=== PATIENT | female | born 1955 | race Caucasian/White ===

== ENCOUNTER 2016-11-07 09:00 | Inpatient (IN) | payer BC ==
[2016-11-07] MEDS ORDERED: Adacel (T-DAP) 0.5 ML VIAL ONE (09:20)
[2016-11-07] MEDS ORDERED: Piperacillin/Tazobactam 3.375 GM VIAL ONE (09:40)
[2016-11-07] MEDS ORDERED: Sodium Chloride 0.9% 0 ML ONE ×2 (09:44→09:45)
[2016-11-07] MEDS ORDERED: Sodium Chloride 0.9% 100 ML ONE (09:45)
[2016-11-07 09:51] LABS: #Basophils 0.2 thou/uL (0.0-0.2); #Eosinphils 0.1 thou/uL (0.0-0.7); #Lymphocytes 2.1 thou/uL (1.20-3.40); #Neutrophils 12.1 thou/uL (1.40-6.50); %Basophils 1.1 % (0.0-1.0); %Eosinophils 0.7 % (0.0-10.0); %Lymphocytes 13.7 % (21.0-51.0); %Monocytes 6.7 % (0.0-10.0); Hematocrit 43.8 % (36.0-47.0); Mean Platelet Volume 6.8 fL (7.4-10.4); Red Blood Cell (RBC) Count 4.77 mill/uL (4.20-5.40); White Blood Cell (WBC) Count 15.6 thou/uL (4.8-10.8)
[2016-11-07 10:00] LABS: Lactic Acid - Sepsis 1.2 mmol/L (0.5-2.2)
[2016-11-07 10:04] LABS: ALT (SGPT) 16 U/L (0-55); AST (SGOT) 19 U/L (5-34); Alkaline Phosphatase 72 U/L (40-150); Anion Gap 17 mmol/L (10-20); BUN (Urea Nitrogen) 12 mg/dL (9.8-20.1); Bilirubin, Total 0.6 mg/dL (0.2-1.2); Calc. Creatinine Clearance 0 mL/min (70-130); Calcium 10.4 mg/dL (7.8-10.44); Carbon Dioxide 24 mmol/L (23-31); Chloride 102 mmol/L (98-107); Estimated GFR-MDRD Greater than 90; Globulin 2.8 g/dL (2.4-3.5); Protein, Total 7.6 g/dL (5.8-8.1)
[2016-11-07] MEDS ORDERED: Ketorolac Tromethamine 30 MG/ML VIAL ONE (10:04)
--- NOTE | 2016-11-07 10:54 | RAD ---
RIGHT HAND: Three views obtained. HISTORY: Injury from dog bite. Swelling and redness to right 2nd finger. FINDINGS: The carpals, metacarpals, and phalanges appear intact. There is soft tissue swelling involving the index finger. No osseous abnormality identified. IMPRESSION: No acute osseous abnormality. POS: YOLA
[2016-11-07] MEDS ORDERED: Acetaminophen 325 MG TAB PO PRN ×2 (15:22→22:30)
[2016-11-07] MEDS ORDERED: HYDROcodone/Acetaminophen 5/325 mg Tablet PO PRN ×2 (15:22)
[2016-11-07] MEDS ORDERED: Ondansetron HCl/PF 4 MG/2 ML Vial IVP PRN (15:22)
[2016-11-07] MEDS ORDERED: Ondansetron ODT 4 MG TAB SL PRN (15:22)
[2016-11-07] MEDS ORDERED: Ibuprofen 400 MG TAB PO PRN (15:25)
[2016-11-07] MEDS ORDERED: Sodium Chloride 0.9% 10 ML ONE (16:26)
[2016-11-07] MEDS: Piperacillin/Tazobactam 3.375 GM in Sodium Chloride 0.9% 100 ML IVPB SCH ×2 (16:37→22:21)
[2016-11-07] MEDS ORDERED: Acetaminophen 500 MG TAB PO PRN (23:02)
[2016-11-07] MEDS ORDERED: diphenhydrAMINE HCl 25 MG CAP PO PRN (23:04)
--- NOTE | 2016-11-08 02:40 | PRG ---
HISTORY AND PHYSICAL DATE OF ADMISSION: 11/07/2016 DATE OF SERVICE: 11/07/2016 HISTORY OF PRESENT ILLNESS: Ms. Perez is a 61-year-old white female that got admitted for cellulitis. This started when her dogs started fighting and when she tried to break them up, she was bitten on her right hand. This happened on Thursday or Thursday. Since then, her hand has gradually been getting more red and more infected. Today, she has a significant red swollen index and second finger with a swollen wrist and redness, a red line that goes all the way up to about 2 inches below the axilla. She was seen in the ER by Dr. Jose Alfredo Blunt and felt to be needed to have admission. She did talk with Dr. Aguilera up at [facility] and did talk with a specialist up at [facility] in [place] to make sure this was some type of tenosynovitis that they need to be seen over at a big hospital. Nonetheless, the patient was admitted to the hospital for IV antibiotics and started on Zosyn 3.375 IV q.6 hours. SUBJECTIVE: The patient states she already feels a little bit better. She is very anxious about staying in the hospital. She does not want to stay here. Apparently, her family member was chronically ill and has spent many days in the hospital. She just becomes so nervous that she cannot sleep in the hospital , etc. PAST MEDICAL HISTORY: Significant for; 1. Multiple sclerosis followed by Dr. Rosado. 2. Hypertension. 3. Hyperlipidemia. 4. Osteopenia. 5. Hypertensive heart disease without heart failure. SURGICAL HISTORY: Reveals patient denies any surgical history. FAMILY HISTORY: Reveals patient's father at age of 58 of lung cancer. He also has hypertension. The patient's mother also had lung cancer. PRESENT MEDICATIONS: Revealed the patient presently takes the following; 1. Caduet 06/19, which is amlodipine with atorvastatin one a day. 2. TriCor 145 mg once a day. 3. Fosamax 70 mg once a week. 4. Calcium 600 mg chewable with vitamin D 2000 mg daily. ALLERGIES: The patient has no known drug allergies. REVIEW OF SYSTEMS: Revealed the patient denies any fever, chills, or pain. She states she feels a little bit tired, went down. She has been fighting this for the last several days. Denies any respiratory problems, including cough, cold, congestion. The patient denies any chest pain, racing or skipping slow heartbeats. Denies any dyspnea on exertion. Denies any nausea, vomiting, diarrhea, constipation, black tarry stools. Denies any genitourinary problems including dysuria, hematuria or nocturia. Denies any significant pain besides just somewhat swelling that her fingers do not bend. PHYSICAL EXAMINATION: GENERAL: This is a well-developed, well-nourished, very pleasant, and very very nervous white female, in no apparent distress at this time. HEENT: Reveals normocephalic, nontraumatic cranium. Pupils are equally round and reactive. Extraocular movements are intact. Nose and throat are slightly dry. NECK: Supple without masses, nodes or bruits. CHEST: Clear to auscultation. No rales, rhonchi or wheezes are heard. HEART: Reveals a regular rate and rhythm without murmurs, gallops or rubs. Tachycardia is noted right at 105. At this time, it is noted that she has been up to 107. ABDOMEN: Soft and nontender without organomegaly. Normal bowel sounds are noted. No rebound or guarding is noted. : Deferred. EXTREMITIES: Reveal no clubbing, cyanosis or edema. The patient has significant swelling of the index, second and long finger with significant swelling above the first and second knuckle and into the wrist and then red lines that run on the palmar surface up past the antecubital space within 2 inches of the axilla. These are red and ropy and she denies pain, but when I rub over them slightly, she winces a little bit. IMPRESSION: 1. Cellulitis from a dog bite. 2. Hypertensive heart disease without heart failure. 3. Hyperlipidemia. 4. Osteopenia. 5. Multiple sclerosis. 6. Anxiety depressive disorder with extreme anxiety. 7. Tobacco abuse. The patient states she has cut down to 1 or 2 cigarettes occasionally. 8. History of 2 to 3 beers almost every night although about one month ago, she went about a week without it. She adamantly denies wanting any type of benzos to make sure she does not have any withdrawal. ASSESSMENT: 1. Cellulitis of the right upper extremity significant from going from the second and third index and long finger all the way up to the axilla. 2. Blood cultures are done and pending. PLAN: 1. The patient is on Zosyn 3.375 mg IV q.6 hours. 2. Ondansetron for nausea and vomiting. 3. Ibuprofen p.r.n. 4. Continue fenofibrate. 5. Hooper 5 p.r.n. severe pain. 6. Tylenol. 7. The patient was asking for Tylenol PM p.r.n. insomnia. 8. Estimated length of stay is probably 3 days with possibly going home on oral antibiotics long-term. MTDD
[2016-11-08] MEDS: Piperacillin/Tazobactam 3.375 GM in Sodium Chloride 0.9% 100 ML IVPB SCH ×3 (03:59→16:09)
[2016-11-08 06:06] LABS: Anion Gap 14 mmol/L (10-20); BUN (Urea Nitrogen) 11 mg/dL (9.8-20.1); Calc. Creatinine Clearance 77 mL/min (70-130); Calcium 9.5 mg/dL (7.8-10.44); Carbon Dioxide 25 mmol/L (23-31); Chloride 106 mmol/L (98-107); Estimated GFR-MDRD Greater than 90
[2016-11-08 06:16] LABS: #Basophils 0.1 thou/uL (0.0-0.2); #Eosinphils 0.2 thou/uL (0.0-0.7); #Lymphocytes 2.4 thou/uL (1.20-3.40); #Monocytes 0.9 thou/uL (0.11-0.59); #Neutrophils 7.3 thou/uL (1.40-6.50); %Basophils 0.8 % (0.0-1.0); %Eosinophils 1.6 % (0.0-10.0); %Lymphocytes 22.2 % (21.0-51.0); %Monocytes 8.3 % (0.0-10.0); Hematocrit 36.3 % (36.0-47.0); Mean Platelet Volume 7.2 fL (7.4-10.4); Red Blood Cell (RBC) Count 3.98 mill/uL (4.20-5.40); White Blood Cell (WBC) Count 10.9 thou/uL (4.8-10.8)
[2016-11-08 07:14] VITALS: BP 133/67
[2016-11-08] MEDS ORDERED: Non-Formulary Item 1 EACH (Amlodipine/Atorvastatin [Caduet] 1 TABLET) PO SCH (09:00)
[2016-11-08] MEDS ORDERED: Fenofibrate Nanocrystallized 145 MG TAB PO SCH (09:00)
[2016-11-08] MEDS ORDERED: Atorvastatin Calcium 20 MG TAB PO SCH (09:00)
[2016-11-08 13:45] VITALS: TEMP 96.6
--- NOTE | 2016-11-09 03:55 | DIS ---
DATE OF ADMISSION: 11/07/2016 DATE OF DISCHARGE: 11/08/2016 Ms. Perez is a 61-year-old patient of Dr. Holcomb service that was seen in the emergency room after having a dog bite. When she tried to break up her son's dog's fighting approximately about a week ago. She was seen in the emergency room with the right index and right long finger completely swoll en, unable to move along with swelling with the knuckles and then red streaks that went from her wri st all the way up to her ankle approximately stopping 1 inch from the axilla. She was seen in the E R, given a dose of Zosyn and then has continued Zosyn 3.375 q.6 hours until this evening. Her white count went down from 15,000-10,000. She is feeling much better. Her redness is all gone and she is stating that she is going to go home or sign out against medical advice. The patient did have 2 blood cultures growing one of which is negative for any growth at all and the other which is growing MRSE, methicillin-resistant staphylococcus epidermidis. The patient respond ed very well and is basically 95% back clinically. She has no fever. She has no chills; white coun t has gone from 15,000 to 10,000. I did discuss the case with Dr. Avila and he felt that most likely the patient has these strep infec tion or strep cryptococcus or contaminant. He felt that placed her on amoxicillin 500 mg for anothe r 10 days should more than adequately eradicate the problem. He felt that the patient had further p roblems she said definitely would need to come back. Vital signs reveal blood pressure this morning 133/67, pulse 95-107, respirations 20, O2 sat 95%. T -max is 99 last night and temperature this morning just today is 96.6. LABORATORY DATA: Reveals white count gone down 15,600 to 10,900. Her hemoglobin is 12.2, hematocri t 36.3 and platelet count 320,000. She has no significant shift at this time. Her sodium was 141, potassium 3.9, chloride 106, carbon dioxide 26 with a BUN of 11, creatinine 0.62 . GFR greater than 90. Sugars was 97. PHYSICAL EXAMINATION: GENERAL: This is a well-developed, well-nourished, very anxious and fidgety and somewhat agitated w guerda female in no apparent distress at this time. HEENT: Reveals normocephalic, nontraumatic cranium. Pupils are equal, round, and reactive. Extrao cular movements intact. Nose and throat slightly dry. NECK: Supple, without masses, nodes, or bruits. CHEST: Clear to auscultation, no rales, rhonchi or wheezes are heard. HEART: Reveals regular rate and rhythm without murmurs, gallops or rubs. Patient not tachycardic a nymore. ABDOMEN: Soft, nontender, without organomegaly, normal bowel sounds are noted. No rebound or guard ing is noted. GENITOURINARY: Deferred. EXTREMITIES: No axillary lymph nodes. The patient says red lines they go all the way up to the axi lla are absolutely gone. The patient has no red streaks at her wrist at all or in her forearm. She has slight swelling of the right index finger and no significant swelling of the long finger at thi s time. She states she feels much better. She states she is healed. She is going to go out AMA, i f we do not discharge her. I spoke before I did talk with Dr. Avila. She felt that starting on amoxicillin 500 mg 3 times a da y for 10 days for complete eradicate problem. DISCHARGE MEDICATIONS: Will be the same medications that she came in on, which include Caduet 10/20 once a day, Tricor 145 once daily, Fosamax 70 once a week, calcium 600 with vitamin D 2000 daily, a nd new addition will be amoxicillin 500 mg 3 times a day for 30 doses. IMPRESSION: 1. Cellulitis from a dog bite. 2. Hypertensive heart disease without heart failure. 3. Hyperlipidemia. 4. Osteopenia. 5. History of multiple sclerosis followed by Dr. Nathaniel Rosado. 6. Anxiety depressive disorder with extreme anxiety. 7. Tobacco abuse, which the patient is pretty much stopping her cigarettes. 8. History of 2-3 beers almost every night, although she states she is not dependent. PLAN: 1. The patient will be discharged at this time. 2. Prescription for amoxicillin 500 mg #30, 1-3 times a day will be given. 3. The patient will continue previous medications. 4. The patient will be follow up with Dr. Dinh over the next 7-10 days.
== END 2016-11-08 18:00 | disposition home or self-care (01) | DRG 605 ==
LOC: NAV ERS 09:00 → NAV ACUTE 12:13
PROVIDERS: ADMIT Internal Medicine; ATTEND Internal Medicine
DX: S61.250A Open bite of right index finger without damage to nail, initial encounter (principal); G35 Multiple sclerosis; I11.9 Hypertensive heart disease without heart failure; S61.252A Open bite of right middle finger without damage to nail, initial encounter; L03.011 Cellulitis of right finger; W54.0XXA Bitten by dog, initial encounter; E78.5 Hyperlipidemia, unspecified; M85.80 Other specified disorders of bone density and structure, unspecified site; F41.9 Anxiety disorder, unspecified; F17.210 Nicotine dependence, cigarettes, uncomplicated
CPT/HCPCS: 80048; 80053; 83605; 85025; 87040; 87149; 90471; 90715; 96365; 96375; A4216; J1885; J2543; J7050

== ENCOUNTER 2016-11-11 08:12 | Outpatient (CLI) | payer BC | END 2016-11-11 08:13 | LOC: NAVSJIPCSP 08:12 | PROVIDERS: ATTEND Internal Medicine | DX: E78.5 Hyperlipidemia, unspecified (principal) | CPT/HCPCS: 36415; 80061 ==

== ENCOUNTER 2017-02-23 08:54 | Outpatient (CLI) | payer BC ==
[2017-02-23 12:56] LABS: Cardiac Risk 2.4 (Less than 4.5)
== END 2017-02-23 08:55 | disposition home or self-care (01) ==
LOC: NAVSJIPCSP 08:54
PROVIDERS: ATTEND Internal Medicine
DX: E78.5 Hyperlipidemia, unspecified (principal)
CPT/HCPCS: 36415; 80061

== ENCOUNTER 2017-03-09 10:18 | Outpatient (CLI) | payer BC ==
--- NOTE | 2017-03-09 16:47 | ULT ---
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 TECHNIQUE: Antonio scale ultrasound with color flow and spectral Doppler imaging of the extracranial carotid arter y systems was performed bilaterally. FINDINGS: There is plaque formation on either side. The ICAs are bilaterally tortuous. The peak systolic velocity in the right ICA measures 73 cm/second with an end-diastolic velocity of 23 cm/second and a systolic ratio of 1.04. The peak systolic velocity in the left ICA measures 63 cm/second with an end-diastolic velocity of 2 0 cm/second and a systolic ratio of 0.73 Flow in both vertebral arteries remains antegrade. IMPRESSION: No evidence of hemodynamically significant stenosis. POS: YOLA
[2017-03-11 15:24] LABS: Ref Lab Test Ordered LIPID CASCADE; Reference Lab Name LABCORP
== END 2017-03-09 10:19 | disposition home or self-care (01) ==
LOC: NAV ULT 10:18
PROVIDERS: ATTEND Internal Medicine
DX: H34.12 Central retinal artery occlusion, left eye (principal); I65.23 Occlusion and stenosis of bilateral carotid arteries
CPT/HCPCS: 36415; 93306; 93880

== ENCOUNTER 2017-05-29 08:13 | Outpatient (CLI) | payer BC ==
[2017-05-29 12:14] LABS: #Basophils 0.1 thou/uL (0.0-0.2); #Eosinphils 0.2 thou/uL (0.0-0.7); #Lymphocytes 2.5 thou/uL (1.20-3.40); #Monocytes 0.5 thou/uL (0.11-0.59); #Neutrophils 3.1 thou/uL (1.40-6.50); %Basophils 1.3 % (0.0-1.0); %Eosinophils 2.8 % (0.0-10.0); %Lymphocytes 38.8 % (21.0-51.0); %Monocytes 8.4 % (0.0-10.0); %Neutrophils 48.7 % (42.0-75.0); Hemoglobin 13.1 g/dL (12.0-16.0); Mean Corpuscular HGB CONC 32.4 g/dL (32.0-36.0); Mean Corpuscular Hemoglobin 30.4 pg (27.0-31.0); Mean Corpuscular Volume 93.9 fl (81.0-99.0); Platelet Count 297 thou/uL (130-400); RBC Distribution Width 12.8 % (11.5-14.5); Red Blood Cell (RBC) Count 4.31 mill/uL (4.20-5.40); White Blood Cell (WBC) Count 6.4 thou/uL (4.8-10.8)
[2017-05-29 12:24] LABS: ALT (SGPT) 17 U/L (8-55); AST (SGOT) 20 U/L (5-34); Albumin 4.6 g/dL (3.4-4.8); Alkaline Phosphatase 56 U/L (40-150); Anion Gap 15 mmol/L (10-20); BUN (Urea Nitrogen) 20 mg/dL (9.8-20.1); Bilirubin, Total 0.5 mg/dL (0.2-1.2); Calc. Creatinine Clearance 0 mL/min (70-130); Calcium 10.3 mg/dL (7.8-10.44); Carbon Dioxide 26 mmol/L (23-31); Cardiac Risk 1.8 (Less than 4.5); Chloride 102 mmol/L (98-107); Cholesterol 133 mg/dl (< 200 Desired); Estimated GFR-MDRD 82; Globulin 2.5 g/dL (2.4-3.5); Glucose 95 mg/dL (80-115); HDL Cholesterol 74 mg/dL (>60 Neg Risk); LDL Cholesterol, Calculated 49 mg/dL; Potassium 4.1 mmol/L (3.5-5.1); Protein, Total 7.1 g/dL (6.0-8.3); Sodium 139 mmol/L (136-145); Triglycerides 51 mg/dL (Less than 150)
[2017-05-29 12:27] LABS: Bilirubin Negative (Negative); Blood, Urine Negative (Negative); Clarity Clear (Clear); Glucose, Urine (Dipstick) Negative (Negative); Leukocyte Negative (Negative); Nitrite Negative (Negative); Protein, Urine (Dipstick) Negative (Neg-Trace); Urobilinogen 0.2 mg/dL (0.2-1.0); pH, Urine 5.5 (5.0-9.0)
[2017-05-29 12:30] LABS: Specific Gravity, Urine 1.019 (1.002-1.036)
== END 2017-05-29 08:14 | disposition home or self-care (01) ==
LOC: NAVSJIPCSP 08:13
PROVIDERS: ATTEND Internal Medicine
DX: I11.9 Hypertensive heart disease without heart failure (principal); E78.5 Hyperlipidemia, unspecified; M85.80 Other specified disorders of bone density and structure, unspecified site; Z79.899 Other long term (current) drug therapy
CPT/HCPCS: 36415; 80053; 80061; 81003; 85025

== ENCOUNTER 2017-10-24 05:57 | Emergency (ER) | payer BC ==
[2017-10-24] MEDS ORDERED: Lidocaine Viscous Sol 2% 15 ml UD Cup ONE (06:35)
== END 2017-10-24 06:43 ==
LOC: NAV ERS 05:57
DX: J02.9 Acute pharyngitis, unspecified (principal); I10 Essential (primary) hypertension; E78.1 Pure hyperglyceridemia; Z87.891 Personal history of nicotine dependence; Z79.899 Other long term (current) drug therapy
CPT/HCPCS: 87081; 87430; 99283

== ENCOUNTER 2020-03-19 15:28 | Outpatient (CLI) | payer MEDICARE ==
--- NOTE | 2020-03-19 15:41 | RAD ---
Exam: Left shoulder 3 views: HISTORY: Left shoulder pain COMPARISON: None FINDINGS: No evidence for fracture, dislocation, or other significant acute osseous abnormality. IMPRESSION: No significant acute process. Mild degenerative and osteoarthrosis changes.
== END 2020-03-19 15:29 | disposition home or self-care (01) ==
LOC: NAV RAD 15:28
PROVIDERS: ATTEND Internal Medicine
DX: M25.512 Pain in left shoulder (principal); M19.012 Primary osteoarthritis, left shoulder

== ENCOUNTER 2022-12-23 18:19 | Emergency (ER) | payer MEDICARE ==
[2022-12-23] MEDS ORDERED: Fentanyl 100 MCG/2 ML VIAL ONE ×2 (18:35→19:00)
[2022-12-23 19:08] LABS: #Basophils 0.1 thou/uL (0.0-0.2); #Eosinphils 0.2 thou/uL (0.0-0.7); #Lymphocytes 2.1 thou/uL (1.20-3.40); #Monocytes 0.6 thou/uL (0.11-0.59); #Neutrophils 3.7 thou/uL (1.40-6.50); %Basophils 1.4 % (0.0-1.0); %Eosinophils 2.3 % (0.0-10.0); %Lymphocytes 32.1 % (21.0-51.0); %Monocytes 8.7 % (0.0-10.0); %Neutrophils 55.5 % (42.0-75.0); Hemoglobin 14.1 g/dL (12.0-16.0); Mean Corpuscular HGB CONC 32.3 g/dL (32.0-36.0); Mean Corpuscular Hemoglobin 29.3 pg (27.0-31.0); Mean Corpuscular Volume 90.7 fl (78.0-98.0); Mean Platelet Volume 6.9 fL (7.4-10.4); Platelet Count 277 10x3/uL (130-400); RBC Distribution Width 13.1 % (11.5-14.5); Red Blood Cell (RBC) Count 4.83 mill/uL (4.20-5.40); White Blood Cell (WBC) Count 6.6 10x3/uL (4.8-10.8)
[2022-12-23 19:29] LABS: Acetaminophen Less than 10.0 mcg/mL (10.0-30.0); Alcohol Less than 10 mg/dL (Less than 10); Salicylate Less than 8.0 mg/dL (15.0-30.0)
[2022-12-23 19:31] LABS: ALT (SGPT) 45 U/L (8-55); AST (SGOT) 60 U/L (5-34); Albumin 4.6 g/dL (3.4-4.8); Alkaline Phosphatase 53 U/L (40-110); Anion Gap 17 mmol/L (10-20); BUN (Urea Nitrogen) 12 mg/dL (9.8-20.1); Bilirubin, Total 0.3 mg/dL (0.2-1.2); Calc. Creatinine Clearance 0 mL/min (70-130); Calcium 9.5 mg/dL (7.8-10.44); Carbon Dioxide 22 mmol/L (23-31); Chloride 102 mmol/L (98-107); Estimated GFR 90; Globulin 2.7 g/dL (2.4-3.5); Glucose 110 mg/dL (80-115); Potassium 4.1 mmol/L (3.5-5.1); Protein, Total 7.3 g/dL (5.8-8.1); Sodium 137 mmol/L (136-145)
[2022-12-23] MEDS ORDERED: HYDROcodone/Acetaminophen 5/325 mg Tablet ONE (20:24)
[2022-12-23] MEDS ORDERED: Ketorolac Tromethamine 30 MG/ML VIAL ONE (20:24)
== END 2022-12-23 20:49 | disposition home or self-care (01) ==
LOC: NAV ERS 18:19
DX: S42.251A Displaced fracture of greater tuberosity of right humerus, initial encounter for closed fracture (principal); S42.211A Unspecified displaced fracture of surgical neck of right humerus, initial encounter for closed fracture; E78.2 Mixed hyperlipidemia; I10 Essential (primary) hypertension; M81.0 Age-related osteoporosis without current pathological fracture; F17.210 Nicotine dependence, cigarettes, uncomplicated; Z79.899 Other long term (current) drug therapy; Z79.82 Long term (current) use of aspirin; W11.XXXA Fall on and from ladder, initial encounter
CPT/HCPCS: 80053; 80307; 85025; 96374; 96375; J1885; J3010